=== PATIENT | female | born 1930 | race Hispanic/Latino ===

== ENCOUNTER 2017-07-11 21:33 | Emergency (ER) | payer OTHER ==
[2017-07-11] MEDS ORDERED: cloNIDine HCl 0.1 MG TAB ONE (22:23)
[2017-07-11] MEDS ORDERED: HYDRALAZINE HCL 20 MG/ML VIAL ONE (23:29)
[2017-07-12] MEDS ORDERED: cloNIDine HCl 0.1 MG TAB ONE (00:23)
--- NOTE | 2017-07-12 01:06 | ER ---
Nurse's Notes [facility] Name: Jackie To Age: 87 yrs Sex: Female : 1930 Arrival Date: 07/11/2017 Time: 21:34 Bed 18 Private MD: Jose Dior Diagnosis: Hypertension secondary to other renal disorders Presentation: 07/11 21:45 Presenting complaint: Patient states: She went have a sleep study done and when the aj1 communications field technician checked her blood pressure it was 226/106, so she was told to come down to the emergency room. Transition of care: patient was not received from another setting of care. Onset of symptoms was July 11, 2017. Risk Assessment: Do you want to hurt yourself or someone else? Patient reports no desire to harm self or others. Initial Sepsis Screen: Does the patient meet any 2 criteria? No. Patient's initial sepsis screen is negative. Does the patient have a suspected source of infection? No. Patient's initial sepsis screen is negative. Care prior to arrival: None. 21:45 Method Of Arrival: Ambulatory [facility] 21:45 Acuity: KIMBERLY 3 aj1 Triage Assessment: 21:52 General: Appears in no apparent distress. uncomfortable, Behavior is calm, cooperative, aj1 appropriate for age. Pain: Denies pain. Historical: - Allergies: 21:52 hydrocodone; aj1 21:52 codeine sulfate; aj1 - Home Meds: 21:52 levothyroxine 75 mcg tab 1 tab once daily [Active]; omeprazole 40 mg Oral cpDR 1 cap aj1 once daily [Active]; atorvastatin 20 mg oral tab 1 tab once daily [Active]; Namenda 28 mg oral tab 1 tab 2 times per day [Active]; sertraline 50 mg oral tab 1 tab once daily [Active]; donepezil 10 mg oral tab 1 tab once daily [Active]; gabapentin 300 mg oral cap [Active]; losartan 100 mg oral tab 1 tab once daily [Active]; mirtazapine 15 mg Oral tab 1 tab once daily [Active]; fentanyl 75 mcg/hr Topical pt72 1 patch every 72 hours [Active]; meloxicam 7.5 mg oral tab 1 tab once daily [Active]; prednisone 10 mg Oral tab once daily [Active]; Albuterol Nebulizer [Active]; breo elipta [Active]; - PMHx: 21:52 Hypothyroidism; Hyperlipidemia; Hypertension; Dementia; Alzheimers; Osteoporosis; aj1 - Immunization history:: Flu vaccine is up to date. - Social history:: Smoking status: Patient/guardian denies using tobacco. Screenin:59 Abuse screen: Denies threats or abuse. Denies injuries from another. Nutritional ak1 screening: No deficits noted. Tuberculosis screening: No symptoms or risk factors identified. Fall Risk None identified. Assessment: 22:00 Reassessment: Patient appears in no apparent distress at this time. General: Appears in ak1 no apparent distress. Behavior is calm, cooperative. Pain: Denies pain. Neuro: No deficits noted. Cardiovascular: No deficits noted. Respiratory: No deficits noted. GI: No signs and/or symptoms were reported involving the gastrointestinal system. : No signs and/or symptoms were reported regarding the genitourinary system. EENT: No signs and/or symptoms were reported regarding the EENT system. Derm: No signs and/or symptoms reported regarding the dermatologic system. Musculoskeletal: No signs and/or symptoms reported regarding the musculoskeletal system. 22:28 Reassessment: pt and family informed of medications effect and will recheck vitals in ak1 45 minuets to 1 hours. pt resting comfortably. will continue to monitor. 07/12 01:29 Reassessment: Patient appears in no apparent distress at this time. No changes from ak1 previously documented assessment. Patient and/or family updated on plan of care and expected duration. Pain level reassessed. Patient is alert, oriented x 3, equal unlabored respirations, skin warm/dry/pink. Patient states symptoms have improved. Vital Signs: 07/11 21:52 BP 185 / 111; Pulse 58; Resp 18; Temp 97.7(O); Pulse Ox 95% on R/A; Weight 74.84 kg aj1 (R); Height 5 ft. 2 in. (157.48 cm); Pain 0/10; 22:28 BP 218 / 93; Pulse 54; Resp 16; Pulse Ox 95% on R/A; Pain 0/10; ak1 23:23 BP 224 / 94; Pulse 51; Resp 16; ak1 07/12 00:10 BP 179 / 67; Pulse 51; Resp 16; Temp 98.; Pulse Ox 95% on R/A; Pain 0/10; ak1 00:44 BP 149 / 41; Pulse 50; Resp 16 S; ak1 01:18 BP 133 / 52; Pulse 51; Resp 16; Pulse Ox 95% on R/A; Pain 0/10; ak1 07/11 21:52 Body Mass Index 30.18 (74.84 kg, 157.48 cm) [facility] ED Course: 07/11 21:34 Patient arrived in ED. ds1 21:36 Jose Dior is Private Physician. ds1 21:46 Triage completed. aj1 21:52 Arm band placed on. aj1 21:54 Jong Burton MD is Attending Physician. tw4 21:59 Estefanía Flores, RN is Primary Nurse. ak1 21:59 Patient has correct armband on for positive identification. Bed in low position. Call ak1 light in reach. Side rails up X 1. Adult w/ patient. Pulse ox on. NIBP on. 22:11 No provider procedures requiring assistance completed. ak1 07/12 01:04 Jose Dior is Referral Physician. tw4 01:28 Patient did not have IV access during this emergency room visit. ak1 Administered Medications: 07/11 22:28 Drug: cloNIDine 0.1 mg Route: PO; ak1 23:33 Follow up: Response: Blood pressure is unchanged ak1 23:33 Drug: hydrALAZINE 20 mg Route: IM; Site: right gluteus; ak1 07/12 01:19 Follow up: Response: No adverse reaction; Blood pressure is lowered ak1 Outcome: 01:04 Discharge ordered by . tw4 01:28 Discharged to home via wheelchair, with family. ak1 01:28 Condition: good 01:28 Discharge instructions given to patient, family, Instructed on discharge instructions, follow up and referral plans. Demonstrated understanding of instructions, follow-up care. 01:29 Patient left the ED. ak1 Signatures: Emelia Florence RN RN [facility] Haily Macdonald ds1 Estefanía Flores, RA RN Jong Delcid MD MD tw4
--- NOTE | 2017-07-12 01:06 | EDPHYS ---
Physician Documentation [facility] Name: Jackie To Age: 87 yrs Sex: Female : 1930 Arrival Date: 07/11/2017 Time: 21:34 Bed 18 Private MD: Jose Dior ED Physician Jong Burton HPI: 07/12 00:41 This 87 yrs old Female presents to ER via Ambulatory with complaints of High tw4 Blood Pressure. 00:41 The patient has elevated blood pressure and discovered this at hospital. Onset: The tw4 symptoms/episode began/occurred just prior to arrival. Modifying factors: The symptoms are aggravated by. Associated signs and symptoms: The patient has no apparent associated signs or symptoms. Severity of symptoms: At its worst the blood pressure was 200 mm Hg. The patient has not experienced similar symptoms in the past. Historical: - Allergies: 07/11 21:52 hydrocodone; aj1 21:52 codeine sulfate; aj1 - Home Meds: 21:52 levothyroxine 75 mcg tab 1 tab once daily [Active]; omeprazole 40 mg Oral cpDR 1 cap aj1 once daily [Active]; atorvastatin 20 mg oral tab 1 tab once daily [Active]; Namenda 28 mg oral tab 1 tab 2 times per day [Active]; sertraline 50 mg oral tab 1 tab once daily [Active]; donepezil 10 mg oral tab 1 tab once daily [Active]; gabapentin 300 mg oral cap [Active]; losartan 100 mg oral tab 1 tab once daily [Active]; mirtazapine 15 mg Oral tab 1 tab once daily [Active]; fentanyl 75 mcg/hr Topical pt72 1 patch every 72 hours [Active]; meloxicam 7.5 mg oral tab 1 tab once daily [Active]; prednisone 10 mg Oral tab once daily [Active]; Albuterol Nebulizer [Active]; breo elipta [Active]; - PMHx: 21:52 Hypothyroidism; Hyperlipidemia; Hypertension; Dementia; Alzheimers; Osteoporosis; aj1 - Immunization history:: Flu vaccine is up to date. - Social history:: Smoking status: Patient/guardian denies using tobacco. ROS: 07/12 00:41 Constitutional: Negative for fever, chills, and weight loss, Cardiovascular: Negative tw4 for chest pain, palpitations, and edema, Respiratory: Negative for shortness of breath, cough, wheezing, and pleuritic chest pain, Abdomen/GI: Negative for abdominal pain, nausea, vomiting, diarrhea, and constipation, Back: Negative for injury and pain, MS/Extremity: Negative for injury and deformity, Skin: Negative for injury, rash, and discoloration, Neuro: Negative for headache, weakness, numbness, tingling, and seizure. Exam: 00:41 Constitutional: This is a well developed, well nourished patient who is awake, alert, tw4 and in no acute distress. Head/Face: Normocephalic, atraumatic. Chest/axilla: Normal chest wall appearance and motion. Nontender with no deformity. No lesions are appreciated. Cardiovascular: Regular rate and rhythm with a normal S1 and S2. No gallops, murmurs, or rubs. Normal PMI, no JVD. No pulse deficits. Respiratory: Lungs have equal breath sounds bilaterally, clear to auscultation and percussion. No rales, rhonchi or wheezes noted. No increased work of breathing, no retractions or nasal flaring. Abdomen/GI: Soft, non-tender, with normal bowel sounds. No distension or tympany. No guarding or rebound. No evidence of tenderness throughout. Vital Signs: 07/11 21:52 BP 185 / 111; Pulse 58; Resp 18; Temp 97.7(O); Pulse Ox 95% on R/A; Weight 74.84 kg aj1 (R); Height 5 ft. 2 in. (157.48 cm); Pain 0/10; 22:28 BP 218 / 93; Pulse 54; Resp 16; Pulse Ox 95% on R/A; Pain 0/10; ak1 23:23 BP 224 / 94; Pulse 51; Resp 16; ak1 07/12 00:10 BP 179 / 67; Pulse 51; Resp 16; Temp 98.; Pulse Ox 95% on R/A; Pain 0/10; ak1 00:44 BP 149 / 41; Pulse 50; Resp 16 S; ak1 01:18 BP 133 / 52; Pulse 51; Resp 16; Pulse Ox 95% on R/A; Pain 0/10; ak1 07/11 21:52 Body Mass Index 30.18 (74.84 kg, 157.48 cm) aj MDM: 07/11 21:54 Patient medically screened. tw4 07/12 01:30 Differential diagnosis: hypertensive crisis, Malignant HTN. Data reviewed: vital signs, tw4 nurses notes. Data interpreted: bus monitor: rhythm is normal sinus rhythm, Pulse oximetry: Interpretation: normal. Counseling: I had a detailed discussion with the patient and/or guardian regarding: the historical points, exam findings, and any diagnostic results supporting the discharge/admit diagnosis, the presence of at least one elevated blood pressure reading (>120/80) during this emergency department visit. Special discussion: I discussed with the patient/guardian in detail that at this point there is no indication for admission to the hospital. It is understood, however, that if the symptoms persist or worsen the patient needs to return immediately for re-evaluation. Administered Medications: 07/11 22:28 Drug: cloNIDine 0.1 mg Route: PO; ak1 23:33 Follow up: Response: Blood pressure is unchanged [facility] 23:33 Drug: hydrALAZINE 20 mg Route: IM; Site: right gluteus; ak1 07/12 01:19 Follow up: Response: No adverse reaction; Blood pressure is lowered ak1 Disposition: 07/12/17 01:04 Discharged to Home. Impression: Hypertension secondary to other renal disorders. - Condition is Stable. - Discharge Instructions: Hypertension, Hypertension, [id number]. - Medication Reconciliation Form, Thank You Letter, Antibiotic Education, Prescription Opioid Use form. - Follow up: [place] [place]; When: As needed; Reason: Recheck today's complaints, Continuance of care, Re-evaluation by your physician. - Problem is new. - Symptoms have improved. Signatures: Emelia Florence RN RN aj1 Estefanía Flores RN RN ak1 Jong Burton MD MD tw4 Corrections: (The following items were deleted from the chart) 01:29 01:04 07/12/2017 01:04 Discharged to Home. Impression: Hypertension secondary to other ak1 renal disorders. Condition is Stable. Forms are Medication Reconciliation Form, Thank You Letter, Antibiotic Education, Prescription Opioid Use. Follow up: [facility]; When: As needed; Reason: Recheck today's complaints, Continuance of care, Re-evaluation by your physician. Problem is new. Symptoms have improved. tw4
[2017-07-12 01:33] VITALS: O2SAT 95
[2017-07-12 01:37] VITALS: TEMP 98
[2017-07-12 01:39] VITALS: BP 133/52
== END 2017-07-12 01:29 | disposition home or self-care (01) ==
LOC: ER 21:33
DX: I15.1 Hypertension secondary to other renal disorders (principal); G30.9 Alzheimer's disease, unspecified; F02.80 Dementia in other diseases classified elsewhere, unspecified severity, without behavioral disturbance, psychotic disturbance, mood disturbance, and anxiety; E03.9 Hypothyroidism, unspecified; E78.5 Hyperlipidemia, unspecified; Z88.5 Allergy status to narcotic agent
CPT/HCPCS: 96372; 99283; J0360

== ENCOUNTER 2017-08-02 05:39 | Emergency (ER) | payer OTHER ==
[2017-08-02] MEDS ORDERED: cloNIDine HCl 0.1 MG TAB ONE (06:00)
--- NOTE | 2017-08-02 07:48 | EDPHYS ---
Physician Documentation [facility] Name: Jackie To Age: 87 yrs Sex: Female : 1930 Arrival Date: 08/02/2017 Time: 05:40 Bed 4 Private MD: Jose Dior ED Physician Harjinder Wilson HPI: 08/02 06:30 This 87 yrs old Female presents to ER via Ambulatory with complaints of High pm1 Blood Pressure. 06:30 The patient has elevated blood pressure and discovered this At sleep study. Onset: The pm1 symptoms/episode began/occurred today. Modifying factors: The symptoms are aggravated by hospitals, white coat syndrome. Associated signs and symptoms: Pertinent negatives: chest pain, dizziness, dyspnea, headache, lightheadedness, nausea, visual changes, vomiting, weakness. Severity of symptoms: in the emergency department the blood pressure is improved. The patient has experienced similar episodes in the past, Elevated blood pressures in hospitals but normal at home. Patient at sleep study and her blood pressure readings were high. Patient instrcted to report to the ER. Patient without any symptoms. Historical: - Allergies: 05:54 HYDROCODONE; mg2 05:54 codeine sulfate; mg2 - Home Meds: 05:54 albuterol sulfate 2.5 mg /3 mL (0.083 %) inhalation nebu [Active]; atorvastatin 20 mg mg2 Oral tab 1 tab once daily [Active]; donepezil 10 mg Oral tab 1 tab once daily [Active]; fentanyl 75 mcg/hr Topical pt72 1 patch every 72 hours [Active]; breo elipta [Active]; losartan 100 mg Oral tab 1 tab once daily [Active]; meloxicam 7.5 mg Oral tab 1 tab once daily [Active]; gabapentin 300 mg Oral cap [Active]; prednisone 10 mg Oral tab once daily [Active]; mirtazapine 15 mg Oral tab 1 tab once daily [Active]; omeprazole 40 mg Oral cpDR 1 cap once daily [Active]; levothyroxine 75 mcg tab 1 tab once daily [Active]; sertraline 50 mg Oral tab 1 tab once daily [Active]; Namenda 28 mg Oral tab 1 tab 2 times per day [Active]; - PMHx: 05:54 Alzheimers; Dementia; Hyperlipidemia; Hypertension; Hypothyroidism; Osteoporosis; mg2 - PSHx: 05:54 None; mg2 - Immunization history:: Adult Immunizations up to date. - Social history:: Smoking status: Patient/guardian denies using tobacco, Patient/guardian denies using alcohol, street drugs. - Ebola Screening: : Patient negative for fever greater than or equal to 101.5 degrees Fahrenheit, and additional compatible Ebola Virus Disease symptoms Patient denies exposure to infectious person Patient denies travel to an Ebola-affected area in the 21 days before illness onset. ROS: 06:30 Constitutional: Negative for fever, chills, and weight loss, Eyes: Negative for injury, pm1 pain, redness, and discharge, ENT: Negative for injury, pain, and discharge, Neck: Negative for injury, pain, and swelling, Cardiovascular: Negative for chest pain, palpitations, and edema, Respiratory: Negative for shortness of breath, cough, wheezing, and pleuritic chest pain, Abdomen/GI: Negative for abdominal pain, nausea, vomiting, diarrhea, and constipation, Back: Negative for injury and pain, : Negative for injury, bleeding, discharge, and swelling, MS/Extremity: Negative for injury and deformity, Skin: Negative for injury, rash, and discoloration, Neuro: Negative for headache, weakness, numbness, tingling, and seizure. Exam: 06:30 Constitutional: This is a well developed, well nourished patient who is awake, alert, pm1 and in no acute distress. Head/Face: Normocephalic, atraumatic. Eyes: Pupils equal round and reactive to light, extra-ocular motions intact. Lids and lashes normal. Conjunctiva and sclera are non-icteric and not injected. Cornea within normal limits. Periorbital areas with no swelling, redness, or edema. ENT: Nares patent. No nasal discharge, no septal abnormalities noted. Tympanic membranes are normal and external auditory canals are clear. Oropharynx with no redness, swelling, or masses, exudates, or evidence of obstruction, uvula midline. Mucous membranes moist. Neck: Trachea midline, no thyromegaly or masses palpated, and no cervical lymphadenopathy. Supple, full range of motion without nuchal rigidity, or vertebral point tenderness. No Meningismus. Chest/axilla: Normal chest wall appearance and motion. Nontender with no deformity. No lesions are appreciated. Cardiovascular: Regular rate and rhythm with a normal S1 and S2. No gallops, murmurs, or rubs. No pulse deficits. Respiratory: Lungs have equal breath sounds bilaterally, clear to auscultation and percussion. No rales, rhonchi or wheezes noted. No increased work of breathing, no retractions or nasal flaring. Abdomen/GI: Soft, non-tender, with normal bowel sounds. No distension or tympany. No guarding or rebound. No evidence of tenderness throughout. Back: No spinal tenderness. No costovertebral tenderness. Full range of motion. Skin: Warm, dry with normal turgor. Normal color with no rashes, no lesions, and no evidence of cellulitis. MS/ Extremity: Pulses equal, no cyanosis. Neurovascular intact. Full, normal range of motion. 06:30 Neuro: Orientation: is normal, Cerebellar function: normal finger to nose testing, Motor: moves all fours, strength is normal, strength is 5/5 in all extremities, Sensation: is normal, no obvious gross deficits. Vital Signs: 05:52 BP 220 / 92; Pulse 63; Resp 18; Temp 97.8(TE); Pulse Ox 94% on R/A; Weight 74.84 kg mg2 (R); Height 5 ft. 2 in. (157.48 cm) (R); Pain 0/10; 06:36 BP 140 / 87; Pulse 62; Resp 18; Pulse Ox 94% on R/A; Pain 0/10; ao 07:11 BP 124 / 65; Pulse 57; Resp 18; Pulse Ox 95% ; sv 05:52 Body Mass Index 30.18 (74.84 kg, 157.48 cm) mg2 MDM: 06:11 Patient medically screened. pm1 06:30 ED course: Patient did not want any workup. Just wanted medications by mouth to pm1 decrease blood pressure. Has had a similar episode in the past . 07:46 Data reviewed: vital signs. Data interpreted: Pulse oximetry: on room air is 95 %. pm1 Interpretation: normal. Counseling: I had a detailed discussion with the patient and/or guardian regarding: the historical points, exam findings, and any diagnostic results supporting the discharge/admit diagnosis, to return to the emergency department if symptoms worsen or persist or if there are any questions or concerns that arise at home. Administered Medications: 06:02 Drug: cloNIDine 0.2 mg Route: PO; ao 07:09 Follow up: Response: No adverse reaction sv Disposition: 19:41 Co-signature as Attending Physician, Harjinder Wilson MD. pkl Disposition: 08/02/17 07:47 Discharged to Home. Impression: Essential (primary) hypertension. - Condition is Stable. - Discharge Instructions: Hypertension, How to Take Your Blood Pressure, [id number], DASH Eating Plan, Managing Your High Blood Pressure. - Medication Reconciliation Form, Thank You Letter form. - Follow up: Emergency Department; When: As needed; Reason: Worsening of condition. Follow up: Private Physician; When: 2 - 3 days; Reason: Recheck today's complaints, Continuance of care, Re-evaluation by your physician. - Problem is new. - Symptoms have improved. Signatures: Harjinder Wilson MD MD pkLindsey Prakash RN RN ss Cedric Jimenez RN RN Kana Lozano, RUFUS BRIMMING MACHINE OPERATOR pm1 Cameron Lai RN RN mg2 Verde, Stephanie RN sv Corrections: (The following items were deleted from the chart) 07:58 07:47 08/02/2017 07:47 Discharged to Home. Impression: Essential (primary) ss hypertension. Condition is Stable. Forms are Medication Reconciliation Form, Thank You Letter, Antibiotic Education, Prescription Opioid Use. Follow up: Emergency Department; When: As needed; Reason: Worsening of condition. Follow up: Private Physician; When: 2 - 3 days; Reason: Recheck today's complaints, Continuance of care, Re-evaluation by your physician. Problem is new. Symptoms have improved. pm1
--- NOTE | 2017-08-02 07:48 | ER ---
Nurse's Notes [facility] Name: Jackie To Age: 87 yrs Sex: Female : 1930 Arrival Date: 08/02/2017 Time: 05:40 Bed 4 Private MD: Jose Dior Diagnosis: Essential (primary) hypertension Presentation: 08/02 05:49 Presenting complaint: Patient states: BP has been elevated for the past 24 Hours. A mg2 reading reported to be 220/100 at home. Patient is asymptomatic but she was sent to the hospital from a sleep apnea center. Transition of care: patient was not received from another setting of care. Onset of symptoms is unknown. Risk Assessment: Do you want to hurt yourself or someone else? Patient reports no desire to harm self or others. Initial Sepsis Screen: Does the patient meet any 2 criteria? No. Patient's initial sepsis screen is negative. Does the patient have a suspected source of infection? No. Patient's initial sepsis screen is negative. Care prior to arrival: None. 05:49 Method Of Arrival: Ambulatory mg2 05:49 Acuity: KIMBERLY 3 mg2 Triage Assessment: 05:55 General: Behavior is calm, cooperative. mg2 Historical: - Allergies: 05:54 HYDROCODONE; mg2 05:54 codeine sulfate; mg2 - Home Meds: 05:54 albuterol sulfate 2.5 mg /3 mL (0.083 %) inhalation nebu [Active]; atorvastatin 20 mg mg2 Oral tab 1 tab once daily [Active]; donepezil 10 mg Oral tab 1 tab once daily [Active]; fentanyl 75 mcg/hr Topical pt72 1 patch every 72 hours [Active]; breo elipta [Active]; losartan 100 mg Oral tab 1 tab once daily [Active]; meloxicam 7.5 mg Oral tab 1 tab once daily [Active]; gabapentin 300 mg Oral cap [Active]; prednisone 10 mg Oral tab once daily [Active]; mirtazapine 15 mg Oral tab 1 tab once daily [Active]; omeprazole 40 mg Oral cpDR 1 cap once daily [Active]; levothyroxine 75 mcg tab 1 tab once daily [Active]; sertraline 50 mg Oral tab 1 tab once daily [Active]; Namenda 28 mg Oral tab 1 tab 2 times per day [Active]; - PMHx: 05:54 Alzheimers; Dementia; Hyperlipidemia; Hypertension; Hypothyroidism; Osteoporosis; mg2 - PSHx: 05:54 None; mg2 - Immunization history:: Adult Immunizations up to date. - Social history:: Smoking status: Patient/guardian denies using tobacco, Patient/guardian denies using alcohol, street drugs. - Ebola Screening: : Patient negative for fever greater than or equal to 101.5 degrees Fahrenheit, and additional compatible Ebola Virus Disease symptoms Patient denies exposure to infectious person Patient denies travel to an Ebola-affected area in the 21 days before illness onset. Screenin:55 Abuse screen: Denies threats or abuse. Denies injuries from another. Nutritional mg2 screening: No deficits noted. Tuberculosis screening: No symptoms or risk factors identified. Fall Risk None identified. Assessment: 05:54 General: Appears in no apparent distress. comfortable. Pain: Denies pain. Neuro: Level mg2 of Consciousness is awake, Oriented to person, Moves all extremities. Speech is normal. Cardiovascular: Capillary refill < 3 seconds Patient's skin is warm and dry. Respiratory: Airway is patent Respiratory effort is even, unlabored, Respiratory pattern is regular, symmetrical. GI: Abdomen is non-distended. : No signs and/or symptoms were reported regarding the genitourinary system. EENT: No signs and/or symptoms were reported regarding the EENT system. Derm: No signs and/or symptoms reported regarding the dermatologic system. Musculoskeletal: No signs and/or symptoms reported regarding the musculoskeletal system. Range of motion: intact in all extremities. 07:10 Reassessment: Patient appears in no apparent distress at this time. Patient and/or ph family updated on plan of care and expected duration. Pain level reassessed. Patient is alert, oriented x 3, equal unlabored respirations, skin warm/dry/pink. Pt sleeping, respirations even and unlabored, awakens easily, Bp lowered to 124/65, family at bedside, pt denies pain at this time. Vital Signs: 05:52 BP 220 / 92; Pulse 63; Resp 18; Temp 97.8(TE); Pulse Ox 94% on R/A; Weight 74.84 kg mg2 (R); Height 5 ft. 2 in. (157.48 cm) (R); Pain 0/10; 06:36 BP 140 / 87; Pulse 62; Resp 18; Pulse Ox 94% on R/A; Pain 0/10; ao 07:11 BP 124 / 65; Pulse 57; Resp 18; Pulse Ox 95% ; sv 05:52 Body Mass Index 30.18 (74.84 kg, 157.48 cm) mg2 ED Course: 05:40 Patient arrived in ED. es 05:40 Jose Dior is Private Physician. es 05:41 Cedric Jimenez, RN is Primary Nurse. ao 05:52 Triage completed. mg2 05:54 Arm band placed on right wrist. Patient placed in an exam room, on a stretcher, on mg2 oxygen, on cardiac exercise specialist, on pulse oximetry. 05:55 Patient has correct armband on for positive identification. court monitor on. Pulse mg2 ox on. NIBP on. 06:09 Kana Multani NP is PHCP. pm1 06:09 Harjinder Wilson MD is Attending Physician. pm1 06:59 Report given to RA Yancey, RA Guajardo. ao Administered Medications: 06:02 Drug: cloNIDine 0.2 mg Route: PO; ao 07:09 Follow up: Response: No adverse reaction sv Outcome: 07:47 Discharge ordered by . pm1 07:58 Patient left the ED. Signatures: Casandra López, Ria Andrews RN, Shelby, RN RN Naye Carbone RN RN Cedric Jimenez RN RN ao Marinas, Patrick, NP [employer] pm1 Cameron Lai RN RN mg2
== END 2017-08-02 07:58 | disposition home or self-care (01) ==
LOC: ER 05:39
DX: I10 Essential (primary) hypertension (principal); G30.9 Alzheimer's disease, unspecified; F02.80 Dementia in other diseases classified elsewhere, unspecified severity, without behavioral disturbance, psychotic disturbance, mood disturbance, and anxiety; E78.5 Hyperlipidemia, unspecified; E03.9 Hypothyroidism, unspecified; Z88.6 Allergy status to analgesic agent
CPT/HCPCS: 99284